=== PATIENT | female | born 1985 | race Caucasian/White ===

== ENCOUNTER 2016-12-07 14:20 | Emergency (ER) | payer BC ==
[2016-12-07] MEDS ORDERED: ALBUTEROL/IPRATROPIUM 1 VIAL SOL INH ONE (14:25)
[2016-12-07] MEDS ORDERED: SOLUMEDROL 125 MG/2 ML 125 MG/2 ML PDS ONE (14:28)
[2016-12-07 14:32] VITALS: BP 126/81; TEMP 97.2
[2016-12-07 14:37] VITALS: PULSE 78; O2SAT 97
[2016-12-07 14:39] VITALS: RESP 18
== END 2016-12-07 14:48 | disposition home or self-care (01) ==
LOC: ED 14:20
DX: J45.901 Unspecified asthma with (acute) exacerbation (principal)
CPT/HCPCS: 99282 ×2; J2930; J7620